=== PATIENT | male | born 1990 | race Caucasian/White ===

== ENCOUNTER 2016-09-29 02:13 | Inpatient (IN) | payer MEDICARE, OTHER ==
--- NOTE | ~2016-09-29 | PN ---
Unit #: [id number] #: [id number] Patient: MARIAH MERCADO [id number] [facility] [address] [place] [address] [id number] I MR#: [id number] NAME: MARIAH MERCADO ROOM: P180 Age: 25 Sex: M Admission Date: 09/29/2016 : 1990 Attending Physician: Palak Guevara M.D. Admitting Physician: Palak Guevara M.D. Primary Care Physician: Primary Care Physician Joselyn HOOVER PROGRESS NOTES DATE 09/30/2016 DISCUSSION Mr. Mercado is a 25-year-old, white male with mood disorder who was seen today and chart was reviewed and case was discussed with the staff. He has been anxious, withdrawn though has not shown any agitation, irritability or behavioral problems and has been cooperative with treatment recommendations. He has been taking the medication and tolerating them fairly well with no reported side effects. MENTAL STATUS EXAM Young white male who was casually dressed with fair personal hygiene, appears to be in no acute distress or discomfort. He was awake and alert on interaction with intact orientation. His mood was anxious with congruent affect. His speech was slow and goal directed. He denies any suicidal or homicidal ideation. Also, denies any auditory or visual hallucinations. His insight and judgement remains slightly impaired. TREATMENT PLAN 1. We will continue him on his current medications and treatment protocol. We will monitor his response and make further adjustments as needed. 2. We will continue to follow up. Dictated by... Kiley Fuller/florentin TD: 10/01/2016 04:32 JOB #: [id number] Unit #: [id number] #: [id number] Patient: MARIAH MERCADO KIKO PROGRESS NOTES Page 1 of 1 X Palak Guevara MD PROGRESS NOTE
--- NOTE | ~2016-09-29 | PN ---
Unit #: [id number] #: [id number] Patient: MARIAH MERCADO [id number] [facility] [address] [place] [address] [id number] I MR#: [id number] NAME: MARIAH MERCADO ROOM: P180 Age: 25 Sex: M Admission Date: 09/29/2016 : 1990 Attending Physician: Palak Guevara M.D. Admitting Physician: Palak Guevara M.D. Primary Care Physician: Primary Care Physician Joselyn HOOVER PROGRESS NOTES DATE 10/01/2016 DISCUSSION Mr. Mercado is a 25-year-old white male who was seen today and chart was reviewed and case was discussed with the staff. He has been anxious, withdrawn and rather seclusive to himself. Meanwhile, he has been cooperative with treatment recommendations and has been taking medications and tolerating them fairly well with no reported side effects. MENTAL STATUS EXAMINATION Young white male who was casually dressed with fair personal hygiene and appears to be in no acute distress or discomfort. He was awake and alert on interaction with intact orientation. His mood was anxious with congruent affect. He denies any suicidal or homicidal ideations and also denies any auditory or visual hallucinations. His insight and judgement remains slightly impaired. TREATMENT PLAN 1. Will continue his current medications and treatment protocol. Will monitor his response to the medications and make further adjustments as needed. 2. Will continue to follow up. Dictated by... Kiley Fuller/drew TD: 10/01/2016 15:51 JOB #: [id number] Unit #: [id number] #: [id number] Patient: MARIAH MERCADO PROGRESS NOTES Page 1 of 1 X Palak Guevara MD PROGRESS NOTE
--- NOTE | ~2016-09-29 | HP ---
Unit #: [id number] #: [id number] Patient: MARIAH MERCADO [id number] [place] [address] [id number] I MR#: [id number] NAME: MARIAH MERCADO ROOM: P180 Age: 25 Sex: M Admission Date: 09/29/2016 : 1990 Attending Physician: Palak Guevara M.D. Admitting Physician: Palak Guevara M.D. Primary Care Physician: No Primary Care Physician HISTORY AND PHYSICAL HISTORY OF PRESENT ILLNESS Mariah michael 25-year-old admitted to [facility] with depression and verbalizing wanting to hurt himself. PAST MEDICAL HISTORY 1. Obesity. 2. Asthma. PAST SURGICAL HISTORY Pilonidal cyst resected approximately eight weeks ago. The area is still draining and requires packing. ALLERGIES No known drug allergies. SOCIAL HISTORY Smokes one pack per day, drinks alcohol on occasion, and admits to using marijuana frequently. FAMILY HISTORY Medically noncontributory. REVIEW OF SYSTEMS CONSTITUTIONAL: No fever or chills. HEENT: Denies any sore throat, ear pain or runny nose. CARDIOVASCULAR: Denies chest pain, irregular heart rhythm or palpitations. CHEST: Denies shortness of breath or cough. No hemoptysis. GASTROINTESTINAL: Denies nausea, vomiting, diarrhea or chronic constipation. ENDOCRINE: Denies history of increased thirst or urination. No recent significant weight loss or gain. GENITOURINARY: Denies dysuria, frequency, or hematuria. SKIN: Denies any rashes. HEMATOLOGIC: Denies history of increased bleeding or bruising. MUSCULOSKELETAL: Denies any hot, swollen joints. No generalized muscle pain. NEUROLOGIC: Denies problems with vision or speech. No frequent, severe headaches. No numbness, tingling or weakness in any extremities. Denies loss of bladder or bowel control. CURRENT MEDICATIONS 1. Celexa 20 mg every day. 2. Milk of magnesia p.r.n. Unit #: [id number] #: [id number] Patient: MARIAH MERCADO 3. Maalox p.r.n. 4. Tylenol p.r.n. PHYSICAL EXAMINATION GENERAL: Alert, obese, and in no apparent distress. VITAL SIGNS: Blood pressure 128/80, heart rate 84, respirations 16, temperature 98.6, weight 271 pounds, and height 5 feet, 11 inches. SKIN: Warm and dry without rash or lesion. There is a large, approximately 3 inches long x 1 inch deep, open area along his lower back. Small amounts of serous fluid is noted. There is no redness or odor noted. HEENT: Normocephalic. TMs not viewed. Oral and nasal passages clear. Conjunctivae clear. PERRLA. EOMs intact. NECK: Supple without lymphadenopathy or thyromegaly. HEART: Regular rate and rhythm without murmur. LUNGS: Clear. ABDOMEN: Soft, nontender. : Not done. EXTREMITIES: No evidence of cyanosis, clubbing or edema. Moves all without focal deficit. NEUROLOGICAL: Grossly within normal limits. Cranial Nerves: II: Visual sanders are intact. III, IV AND : Extraocular movements are intact. Pupils are equal, round and reactive to light. V: Facial sensation is grossly normal. VII: Facial movements and expression are normal. VIII: Auditory acuity grossly intact. IX, X: Uvula is midline. Phonation is normal. XI: Patient shrugs shoulders and turns head normally. XII: Tongue protrudes in the midline. Sensory and Motor Function: Sensory and motor sensation is grossly normal. Motor: moves all extremities well. Coordination: Gait is normal. Deep Tendon Reflexes: Intact. IMPRESSION 1. Psychiatric admission. 2. Obesity. 3. Asthma. 4. Pilonidal cyst resected approximately eight weeks ago. The area is still healing by secondary intention and is draining. RECOMMENDATIONS PSYCHIATRIC: Per psychiatrist. MEDICAL 1. I see no contraindication to participating in facility's activities. 2. Will pack the area along his lower back with 1-inch plain packing gauze and cover with 4 x 4s and secure it with paper tape. This will need to be changed on a daily basis. MEDICAL PROGNOSIS Good. MEDICAL CONDITION Stable. Dictated by... Elsa Millard P.A.-C. for Henry Miller M.D. Unit #: [id number] #: [id number] Patient: ROGELIOMARIAH DICK/pam TD: 09/30/2016 12:11 JOB #: [id number] HISTORY AND PHYSICAL Page 1 of 1 X Elsa Millard HISTORY AND PHYSICAL
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
--- NOTE | ~2016-09-29 | DS ---
Unit #: [id number] #: [id number] Patient: LUKAS MERCADO [id number] [facility] [address] [place] [address] [id number] I MR#: [id number] NAME: LUKAS MERCADO ROOM: P180 Age: 25 Sex: M Admission Date: 09/29/2016 : 1990 Discharge Date: 10/02/2016 Attending Physician: Palak Guevara M.D. Primary Care Physician: Primary Care Physician No DISCHARGE SUMMARY IDENTIFYING DATA Mr. Lukas Mercado is a 25-year-old single white male, who was self-referred to the hospital. DISCHARGE DIAGNOSES Psychiatric: Major depressive disorder, recurrent, moderate, without psychotic features. Medical: None. Stressors: Moderate psychosocial stressors. HISTORY OF PRESENT ILLNESS Please see initial psychiatric evaluation for details. PAST PSYCHIATRIC HISTORY Please see initial psychiatric evaluation for details. PAST MEDICAL HISTORY Please see initial psychiatric evaluation for details. HOSPITAL COURSE [facility] and was oriented to the hospital environment. Routine p.r.n. medications were initiated, and he was started back on his home medications and was closely monitored. He was taking the medications regularly and was tolerating them fairly well and was able to show a fairly decent and therapeutic response and was able to come out of that and was denying any suicidal or homicidal ideations, and was willing to continue treatment on an outpatient basis and as such, it was decided that he will be discharged home and will continue treatment on an outpatient basis. DISCHARGE MEDICATIONS Celexa 20 mg a day for depression. DISCHARGE CONDITION Stable. PROGNOSIS Fair. Dictated by... Palak Guevara M.D. Unit #: [id number] #: [id number] Patient: LUKAS MERCADO IAA/modl TD: 10/02/2016 06:44 JOB #: [id number] DISCHARGE SUMMARY Page 1 of 1 X Palak Guevara MD DISCHARGE SUMMARY
--- NOTE | ~2016-09-29 | CO ---
Unit #: [id number] #: [id number] Patient: MARIAH MERCADO [id number] [place] [address] [id number] I MR#: [id number] NAME: MARIAH MERCADO ROOM: P180 Age: 25 Sex: M Admission Date: 09/29/2016 : 1990 Attending Physician: Palak Guevara M.D. Primary Care Physician: Primary Care Physician No Consultation Date: 09/29/2016 CONSULTATION REPORT SUBJECTIVE Mariah is a 25-year-old who had a pilonidal cyst resected 8 weeks prior to this admission. This area was described and treatment was outlined in his admission H and P. Please see H and P dated 09/30/2016. Dictated by... Elsa Millard P.A.-C. for Kiley Blair/misa TD: 10/01/2016 01:15 JOB #: [id number] CONSULTATION REPORT Page 1 of 1 X Elsa Millard CONSULTATION REPORT
[2016-09-29 09:54] LABS: BASOPHIL# 0.1 X10e3 (0-0.3); BASOPHIL% 0.7 % (0-2.5); EOSINOPHIL# 0.4 X10e3 (0-0.7); EOSINOPHIL% 3.2 % (0.0-7.0); HEMATOCRIT 47.5 % (38.0-50.0); HEMOGLOBIN 15.8 gm/dL (13.0-16.0); LYMPHOCYTE% 30.9 % (17.0-45.0); MEAN CELL VOLUME 92.6 FL (83-96); MEAN CORPUSCULAR HEMOGLOBIN 30.7 PG (28-34); MEAN CORPUSCULAR HGB CONC 33.2 g/dL (30-36); MEAN PLATELET VOLUME 7.2 FL (6.5-11.5); MONOCYTE# 1.6 X10e3 (0-1.0); MONOCYTE% 11.9 % (3.0-12.0); NEUTROPHIL% 53.3 % (40-75); PLATELET COUNT 346 X10e3 (140-420); RED BLOOD COUNT 5.13 X10e (3.90-5.60); RED CELL DISTRIBUTION WIDTH 13.6 % (11.0-15.5); WHITE BLOOD COUNT 13.1 X10e3 (4.0-10.5)
[2016-09-29 10:00] LABS: DIFF IND NO
[2016-09-29 10:08] LABS: BILIRUBIN,TOTAL 0.7 mg/dL (0.2-2.0); BUN/CREATININE RATIO 17.77; CALCIUM SERUM 9.2 mg/dL (8.4-10.2); CREATININE SERUM 0.9 mg/dL (0.6-1.4); GLOM FILT RATE Estimated 119.1 mL/min (>60); POTASSIUM 3.9 mmol/L (3.5-5.1)
[2016-09-30 12:36] LABS: URINE APPEARANCE CLEAR; URINE BILIRUBIN NEG (NEG); URINE BLOOD 1+ (NEG); URINE COLOR DK YELLOW; URINE GLUCOSE NEG (NEG); URINE KETONE TRACE (NEG); URINE LEUKOCYTE ESTERASE NEG (NEG); URINE NITRATE NEG (NEG); URINE PROTEIN NEG (NEG); URINE SPECIFIC GRAVITY 1.026 (1.003-1.035)
[2016-09-30 12:40] LABS: U HYALINE CASTS AUWI 0-2 /[LPF]; URINE BACTERIA AUWI NEG (NEGATIVE); URINE SQUAMOUS EPITHELIAL CELL NONE SEEN /[HPF]; UWBCS1 AUWI 0-2 (0-5)
[2016-09-30 13:02] LABS: AMPHETAMINE NEG (NEG); BARBITURATES NEG (NEG); BENZODIAZEPINES NEG (NEG); COCAINE NEG (NEG); MARIJUANA POS (NEG); OPIATES NEG (NEG); TRICYCLIC ANTIDEPRESSANTS NEG (NEG); U METHADONE NEG (NEG)
== END 2016-10-02 09:20 | disposition home or self-care (01) | DRG 885 ==
LOC: P1E 02:13
PROVIDERS: Psychiatry & Neurology Psychiatry
DX: F33.1 Major depressive disorder, recurrent, moderate (principal); E66.9 Obesity, unspecified; J45.909 Unspecified asthma, uncomplicated; F17.210 Nicotine dependence, cigarettes, uncomplicated
CPT/HCPCS: 80053; 80307; 81003; 85025